=== PATIENT | male | born 1985 ===

== ENCOUNTER 2018-01-27 08:33 | Day surgery (SDC) | payer OTHER, BC ==
[~2018-01-27 08:33] MED LIST: Dexamethasone 4 MG/ML SDV ONE; EPINEPHrine 1 MG/ML SDV ONE; Ketorolac 30 MG/ML SDV ONE; Lactated Ringers 1,000 ML IV SCH; Lactated Ringers 1,000 ML ONE; Lidocaine 1% 4 ML ONE; Lidocaine 1%/Sod Bicarbonate in NS 8.4% 1 ML Syringe IDERM PRN; Midazolam 1 MG/ML 2 ML SDV ONE; Ondansetron 4 MG/2 ML SDV ONE; Propofol 200 MG/20 ML SDV ONE; Rocuronium 50 MG/5 ML Vial ONE; Ropivacaine 0.5% 5 MG/ML 30 ML SDV ONE; Sodium Chloride 0.9% 10 ML Syringe FLUSH PRN; ceFAZolin 1 GM Vial ONE; fentaNYL 250 MCG/5 ML SDV ONE
[2018-01-27] MEDS ORDERED: Bupivacaine 0.25% 30 ML SDV ONE (09:06)
--- NOTE | 2018-01-27 09:47 | PCM.PREANE ---
Preanesthetic Assessment - Anesthesia/Transfusion/Family Hx Anesthesia History: Prior Anesthesia Without Reaction Type of Anesthesia Reaction: Excessive Nausea/Vomiting Family History of Anesthesia Reaction: No Transfusion History: No Prior Transfusion(s) Intubation History: Unknown - Review of Systems Pulmonary: No Symptoms (quit smoking December 13, 2017/ 2 Beers/day) Cardiovascular: No Symptoms (History of faint heart murmur) Gastrointestinal: No Symptoms Neurological: No Symptoms (Idiopathic peripheral autonomic neuropathy/lower back pain, left shoulder pain #5/10, history of RA, motion sickness), Tingling ( all four extremities) Other: Reports: Sinus Problem (seasonal allergies/rhinitis), Neck Pain, Anxiety - Physical Assessment NPO Status Date: 01/26/18 NPO Status Time: 21:30 Pulse: 101 O2 Sat by Pulse Oximetry: 97 Respiratory Rate: 15 Blood Pressure: 120/78 Temperature: 36.9 C Height: 1.8 m Weight: 83.8 kg ASA Class: 2 Mental Status: Alert & Oriented x3 Airway Class: Mallampati = 2 Dentition: Reports: Normal Dentition, Caries Thyro-Mental Finger Breadths: 3 Mouth Opening Finger Breadths: 3 ROM/Head Extension: Full Lungs: Clear to Auscultation, Normal Respiratory Effort Cardiovascular: Regular Rate, Regular Rhythm, No Murmurs - Lab Values: All lab values reviewed and noted and within acceptable ranges to proceed with scheduled procedure. MRSA negative. - Allergies Allergies/Adverse Reactions: Allergies Allergy/AdvReac Type Severity Reaction Status Date / Time No Known Allergies Allergy Verified 01/26/18 16:31 - Anesthesia Plan Pre-Op Medication Ordered: None - Acknowledgements Anesthesia Type Planned: General Anesthesia (with left interscalene block under US guidance for post operative pain control requested by Dr. 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 Musculoskeletal History: Reports: Back Pain, Chronic, RA Neurological History: Reports: Other (See Below) Other Neuro History: idiopathic peripheral autonomic neuropathy, lumbar disc displacement Psychiatric History: Reports: None Endocrine/Metabolic History: Reports: None Hematologic History: Reports: None Immunologic History: Reports: None Oncologic (Cancer) History: Reports: None Dermatologic History: Reports: None - Past Surgical History Head Surgeries/Procedures: Reports: None HEENT Surgical History: Reports: Tonsillectomy Cardiovascular Surgical History: Reports: None Respiratory Surgical History: Reports: None GI Surgical History: Reports: None Female Surgical History: Reports: None Male Surgical History: Reports: None Endocrine Surgical History: Reports: None Neurological Surgical History: Reports: None Oncologic Surgical History: Reports: None Dermatological Surgical History: Reports: None - SUBSTANCE USE Smoking Status *Q: Former Smoker Tobacco Use Within Last Twelve Months: No Second Hand Smoke Exposure: No Days Per Week of Alcohol Use: 7 Number of Drinks Per Day: 3 Total Drinks Per Week: 21 Recreational Drug Use History: No - HOME MEDS Home Medications: Home Meds Cyclobenzaprine [Flexeril] 10 mg PO Q8H PRN #40 tablet 04/02/16 [Rx] Diazepam [Valium] 5 mg PO TID PRN 01/26/18 [History] Ibuprofen 1 - 3 tab PO Q6H PRN 01/26/18 [History] oxyCODONE HCl [Oxycodone HCl] 10 mg PO Q4H PRN 01/26/18 [History] Acetaminophen/HYDROcodone [Agness 325-5 MG] 1 - 2 tab PO Q6H PRN #40 tablet 01/27 [Rx] Cyclobenzaprine [Flexeril] 10 mg PO Q8H PRN #40 tab 01/27/18 [Rx] - CURRENT (IN HOUSE) MEDS Current Meds: Current Medications Epinephrine HCl (Adrenalin) 3 mg IV ONETIME ONE Stop: 01/27/18 10:31 Lactated Ringer's (Ringers, Lactated) 1,000 mls @ 125 mls/hr IV ASDIRECTED ROSEMARY Stop: 01/27/18 23:00 Lidocaine/Sodium Bicarbonate (Buffered Lidocaine 1% In Ns 8.4%) 0.25 ml IDERM ONETIME PRN PRN Reason: Prior to IV Start Stop: 01/27/18 18:00 Scopolamine (Transderm-Scop) 1.5 mg TRDERM ONETIME ONE Stop: 01/27/18 10:31 Last Admin: 01/27/18 09:16 Dose: 1.5 mg Sodium Chloride (Saline Flush) 10 ml FLUSH ASDIRECTED PRN PRN Reason: Keep Vein Open Stop: 01/27/18 18:00 Discontinued Medications Bupivacaine HCl (Marcaine 0.25%) Confirm Administered Dose 30 ml .ROUTE .STK- MED ONE Stop: 01/27/18 09:07 Cefazolin Sodium (Ancef) Confirm Administered Dose 2 gm .ROUTE .ST-MED ONE Stop: 01/27/18 06:12 Dexamethasone (Dexamethasone) Confirm Administered Dose 8 mg .ROUTE .ST-MED ONE Stop: 01/27/18 06:12 Epinephrine HCl (Adrenalin) Confirm Administered Dose 1 mg .ROUTE .ST-MED ONE Stop: 01/27/18 05:43 Fentanyl (Sublimaze) Confirm Administered Dose 250 mcg .ROUTE .ST-MED ONE Stop: 01/27/18 06:12 Lidocaine HCl (Xylocaine-Mpf 1%) Confirm Administered Dose 4 mls @ as directed .ROUTE .ST-MED ONE Stop: 01/27/18 05:42 Lactated Ringer's (Ringers, Lactated) Confirm Administered Dose 1,000 mls @ as directed .ROUTE .ST-MED ONE Stop: 01/27/18 06:12 Ketorolac Tromethamine (Toradol) Confirm Administered Dose 30 mg .ROUTE .ST- MED ONE Stop: 01/27/18 06:12 Midazolam HCl (Versed 1 Mg/Ml) Confirm Administered Dose 2 mg .ROUTE .ST-MED ONE Stop: 01/27/18 06:12 Ondansetron HCl (Zofran) Confirm Administered Dose 4 mg .ROUTE .ST-MED ONE Stop: 01/27/18 06:12 Propofol (Diprivan 20 Ml) Confirm Administered Dose 200 mg .ROUTE .ST-MED ONE Stop: 01/27/18 06:12 Rocuronium Melvin (Zemuron) Confirm Administered Dose 50 mg .ROUTE .STK-MED ONE Stop: 01/27/18 06:12 Ropivacaine (Naropin 0.5%) Confirm Administered Dose 30 ml .ROUTE .ST-MED ONE Stop: 01/27/18 05:43
[2018-01-27] MEDS ORDERED: EPINEPHrine 1 MG/ML 30 ML MDV IV ONE (10:30)
[2018-01-27] MEDS ORDERED: Scopolamine 1.5 MG Transdermal Patch TRDERM ONE (10:30)
--- NOTE | 2018-01-27 10:55 | PCM.SN ---
- Free Text/Narrative Note: Anesthesia Note: (Left Interscalene block note) Date: 01/27/2018 Time Out: 1018 Start: 1022 Stop: 1037 Surgical Procedure: Left Shoulder Video Arthroscopy with superior labrum repair Diagnosis Left Shoulder Superior Glendoid Labrum Tear Current Procedure: Left interscalene block under US guidance for postoperative pain control requested by Dr. Barrett. Patient chart reviewed, risk/benefits discussed with patient, consent obtained. Patient positioned supine, monitors/alarms on, oxygen placed via nasal cannula at 2 LPM. IV sedation administered: Versed 2mg IV @ 1019, Fentanyl 50mcg IV @ 1020 Left shoulder prepped with two chloropreps. Sterile drapes placed with aseptic technique noted. Under US guidance, left subclavian artery visualized along with the left brachial plexus. Plexus followed up to C6 cricoid level, and area localized with 2mls of 1% lidocaine. 22gauge 2 inch stimiplex needle advanced under US with 0.8mV with stimulation of biceps noted. Good stimulation noted with decreased voltage and absent at 0.2mVs. 1ml of Normal Saline injected with loss of stimulation noted to confirm needle not placed intraneurally. Incremental dosing of 5mls with negative aspiration noted prior to each injection of 0.5% ropivacaine with 1:200,000 epinephrine. Total volume=30mls. (Transient faint heme aspiration noted, needle repositioned and negative aspiration noted with each subsequent 5ml injections.) Please refer to nurses noted for vital signs. Екатерина Clemons CRNA
[2018-01-27] MEDS ORDERED: Propofol 200 MG/20 ML SDV ONE (11:25)
[2018-01-27] MEDS ORDERED: Ondansetron 4 MG/2 ML SDV IVPUSH PRN (11:48)
[2018-01-27] MEDS ORDERED: fentaNYL 100 MCG/2 ML SDV IVPUSH PRN (11:48)
[2018-01-27] MEDS ORDERED: diphenhydrAMINE 50 MG/ML SDV IVPUSH PRN (11:48)
[2018-01-27] MEDS ORDERED: ePHEDrine 50 MG/ML SDV IVPUSH PRN (11:48)
[2018-01-27] MEDS ORDERED: Phenylephrine 1 MG in Sodium Chloride 0.9% 10 ML IV SCH (12:00)
--- NOTE | 2018-01-27 13:00 | PCM.POSTAN ---
POST ANESTHESIA ASSESSMENT - MENTAL STATUS Mental Status: Alert - VITAL SIGNS Pulse Rate: 80 SaO2: 95 Resp Rate: 14 Blood Pressure: 119/78 Temperature: 36.8 C - RESPIRATORY Respiratory Status: Respiratory Rate WNL, Airway Patent, O2 Saturation Stable, Supplemental Oxygen - CARDIOVASCULAR CV Status: Pulse Rate WNL, Blood Pressure Stable - GASTROINTESTINAL GI Status: No Symptoms - POST OP HYDRATION Hydration Status: Adequate & Stable
[2018-01-27] MEDS: HYDROmorphone 0.5 MG/0.5 ML Syringe IVPUSH PRN ×2 (13:13→13:32)
[2018-01-27] MEDS ORDERED: Cyclobenzaprine 10 MG Tab PO PRN (14:16)
[2018-01-27] MEDS ORDERED: Acetaminophen/HYDROcodone 325-5 MG Tab PO PRN (14:24)
--- NOTE | 2018-01-27 14:42 | PCM48HPAN ---
Post Anesthesia Note - EVALUATION WITHIN 48HRS OF ANESTHETIC Vital Signs in Normal Range: Yes Patient Participated in Evaluation: Yes Respiratory Function Stable: Yes Airway Patent: Yes Cardiovascular Function Stable: Yes Hydration Status Stable: Yes Pain Control Satisfactory: Yes Nausea and Vomiting Control Satisfactory: Yes Mental Status Recovered: Yes
[2018-01-27 15:17] VITALS: BP 114/71
--- NOTE | 2018-02-02 15:19 | PCM.OPNOTE ---
- General Post-Op/Procedure Note Date of Surgery/Procedure: 01/27/18 Operative Procedure(s): left shoulder video arthroscopy with superior/anterior labral repair and extensive subacromial debridement Pre Op Diagnosis: left shoulder labral tear with subacromial bursitis Post-Op Diagnosis: Same Anesthesia Technique: General ET Tube, Regional Block Primary Surgeon: Wally Barrett Anesthesia Provider: Екатерина Clemons Silo Operator: Lucía Dutta in mLs: 5 Complications: None Condition: Good
--- NOTE | 2018-02-02 22:43 | OR ---
DATE OF OPERATION: 01/27/2018 SURGEON: Wally Barrett MD OPERATION PERFORMED: Left shoulder video arthroscopy with superior and anterior labral repair and extensive subacromial debridement. PREOPERATIVE DIAGNOSIS: Left shoulder labral tear with subacromial bursitis. POSTOPERATIVE DIAGNOSIS: Left shoulder labral tear with subacromial bursitis. ANESTHESIA: General endotracheal intubation with regional interscalene block. ANESTHESIA PROVIDER: Екатерина Clemons CRNA. PUNCH MOLDER: Lucía Dutta PA-C. ESTIMATED BLOOD LOSS: Less than 5 mL. COMPLICATIONS: None. CONDITION: Stable. DESCRIPTION OF PROCEDURE: The patient was identified in the preop holding area. Proper site was marked and identified by the surgeon. The patient was taken back to the operating theater where after adequate anesthesia, the patient was placed in the right lazy lateral position. A wedge was placed posteriorly. The patient was secured to the table. All bony prominences were well padded. Left upper extremity was then sterilely prepped and draped in the usual sterile fashion. OR time-out was performed. The patient received 2 g IV Ancef. 15 pounds of traction was applied to the left upper extremity. Standard posterior incision from the previous surgery was utilized and scope trocar was introduced into the glenohumeral joint. An anterior portal was then created with the use of a spinal needle. Cursory examination did show a small area of erythema near the anterior and superior portion of the labrum near the previous biceps insertion. There was a little bit of peel back there as well and there was significant erythema noted of the labrum just at that one small spot. The rest of the labrum appeared intact with no signs of instability. The underside of the rotator cuff was intact. There was no chondromalacia noted. The biceps tenodesis from previous showed significant scarring in the rotator interval with no signs of erythema. At this time, it was decided that we would do 1 anchor 2.7 mm labral Arthrex anchor in the area of erythema. At this time, a Lindsay was used to free the labrum in this area. A rasp and a resector were then used to roughen the edge of the glenoid. Next, a drill was used for the 2.7 mm Arthrex labral anchor. The FiberStick FiberWire was then placed underneath the labrum in this position and then brought out through the anterior portal. The anchor was then loaded. Tension was applied to the sutures and the anchor was placed in the glenoid. At this time, it had good bumper effect at this area and covering up the area of erythema at this point. At this time, it was decided that was all the labral instability that was noted. At this time, attention was turned to the subacromial space. Through the posterior portal, the trocar was placed in subacromial space. It was noted that the patient had significant extensive bursitis noted. At this time, an extensive debridement was completed and a lateral portal was also created secondary to how much scar and bursitis was noted in subacromial space. At this time, the patient did continue to have a type 1 acromion with no significant fraying noted of the CA ligament. At this time, after the significant synovitis was removed and the extensive debridement was completed, the rotator cuff was found to be intact, excess saline was drained from the shoulder. 3-0 nylon simple suture was used for closure of the skin. The patient was sent to PACU in stable condition. MMODAL /[id number]
== END 2018-01-27 15:10 | disposition home or self-care (01) ==
LOC: JD.SDS 08:33
PROVIDERS: ATTEND Orthopaedic Surgery
DX: M75.52 Bursitis of left shoulder (principal); S43.432A Superior glenoid labrum lesion of left shoulder, initial encounter; F41.9 Anxiety disorder, unspecified; Z87.891 Personal history of nicotine dependence; Z79.899 Other long term (current) drug therapy; X58.XXXA Exposure to other specified factors, initial encounter
CPT/HCPCS: 29807; 29823; 64415; A9270; C1713; J0171; J0690; J1100; J1170; J1885; J2250; J2405; J2795; J3010; J3490; J7120; 01630; J2704